=== PATIENT | male | born 1980 | race Two or more races ===

== ENCOUNTER 2016-11-20 19:47 | Observation (INO) | payer OTHER ==
[2016-11-20] MEDS ORDERED: ONDANSETRON 4 MG/2 ML VIAL IVP ONE (20:20)
[2016-11-20] MEDS ORDERED: NS 1,000 ML IV ONE (20:20)
--- NOTE | 2016-11-20 20:26 | EDPHY ---
H & P Smoking Status: Current every day smoker Time Seen by Provider: 11/20/16 19:59 HPI/ROS: CHIEF COMPLAINT: Back pain, left leg numbness HISTORY OF PRESENT ILLNESS: 36-year-old male presents after a fall with back pain and left leg numbness. He was on scaffolding approximately 8 feet off the ground when he lost his balance and fell backwards directly onto his back. Immediate onset severe upper and lower back pain, associated with shortness of breath. The shortness of breath has resolved. He continues to have diffuse back pain. He also has numbness in the left lower extremity. He denies head injury; no headache or neck pain. 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) Physical Exam: General Appearance: Alert, he is lying on left side, appears in pain Head: Atraumatic Eyes: No conjunctival erythema, PERRLA, EOMI ENT, Mouth: No hemotympanum, no oral trauma, no bony tenderness Neck: Nontender, full range of motion without pain Respiratory: left lower lateral chest wall tenderness, lungs clear bilaterally Cardiovascular: Regular rate and rhythm Abdomen: Abdomen is soft, left upper quadrant tenderness Skin: No lacerations, no abrasions Back: midline tenderness of the upper thoracic spine and the upper lumbar spine , no deformity Extremities: Pelvis is stable and nontender; no extremity tenderness Neurological: A&Ox3, motor exam-left lower extremity-weakness with knee extension and ankle dorsiflexion, 4+, sensory-decreased sensation to light touch of the entire leg Psychiatric: Mood and affect normal (Cass Elias) Constitutional: Initial Vital Signs Temperature (C) 36.8 C 11/20/16 19:50 Heart Rate 82 11/20/16 19:50 Respiratory Rate 20 11/20/16 19:50 Blood Pressure 131/75 H 11/20/16 19:50 O2 Sat (%) 96 11/20/16 19:50 O2 Delivery Mode Room Air Allergies/Adverse Reactions: No Known Allergies Allergy (Unverified 11/20/16 19:54) Home Medications: Medication Instructions Recorded NK [No Known Home Meds] 11/20/16 Medical Decision Making - Diagnostics Imaging Results: Imaging Impressions Chest CT 11/20/16 20:21 Impression: 1. No evidence of thoracic trauma or hemorrhage. 2. No aortic aneurysm, dissection, or mediastinal hematoma. Findings and recommendations discussed with Emergency Department physician, Star Segovia M.D., at 2150 hours, on November 20, 2016. Final report concurs with initial preliminary interpretation. Abdomen CT 11/20/16 20:22 Impression: 1. Normal CT abdomen and pelvis, with contrast enhancement. 2. No evidence of abdominal or pelvic hemorrhage or organ laceration. Findings and recommendations discussed with Emergency Department physician, Star Segovia M.D., at 2150 hours, on November 20, 2016. Final report concurs with initial preliminary interpretation. Lumbar Spine CT 11/20/16 20:22 Impression: 1. No definite fracture. 2. L4-L5: Moderate central canal stenosis secondary to right paramedian disk herniation. 3. Consider MRI lumbar spine. Findings and recommendations discussed with Emergency Department physician, Star Segovia M.D., at 2150 hours, on November 20, 2016. Final report concurs with initial preliminary interpretation. Thoracic Spine CT 11/20/16 20:22 Impression: 1. No definite thoracic compression fracture. 2. Multilevel mild degenerative disk disease mid to lower thoracic spine. 3. If there is persistent pain or a neurological deficit, recommend MR thoracic spine. Findings and recommendations discussed with Emergency Department physician, Star Segovia M.D., at 2150 hours, on November 20, 2016. Final report concurs with initial preliminary interpretation. Cervical Spine CT 11/20/16 21:04 Impression: 1. No definite fracture. 2. If there is persistent pain or a neurological deficit, recommend MR cervical spine and consider flexion and extension views, if clinically indicated. Findings and recommendations discussed with Emergency Department physician, Star Segovia M.D., at 2150 hours, on November 20, 2016. Final report concurs with initial preliminary interpretation. Lumbar Spine MRI 11/20/16 22:31 Impression: 1. No lumbar compression fractures or epidural hematomas. 2. L4-L5: Mild to moderate central canal stenosis and right neural foraminal stenosis secondary to degenerative disease, right paramedian disk herniation and bilateral facet arthropathy. 3. Please see above findings at specific disk levels. Findings and recommendations discussed with Emergency Department physician, Dr. Yoshi Logan at 23:47 hour, 11/20/2016. Final report concurs with initial preliminary interpretation. ED Course/Re-evaluation: 8:45 p.m.-I re-examined the patient after morphine and Zofran IV. He still is in a lot of pain and is unable to lie supine. Strength in the left lower extremity is 4+, including hip flexion, knee extension and ankle dorsiflexion. Morphine 6 mg IV given. He is now able to lie supine. After laying down, he complained of neck pain. A cervical spine collar was placed. CT neck ordered. (Cass Elias) Patient's care is transferred to sd at 11:[address] Sanchez. At that time the patient was at MRI. I evaluated him after he returned. He is complaining severe thoracic and lumbar pain. He appears to have some swelling versus spasming in his thoracic region. He continues to complain of right leg pain. He has 3 to 4/5 strength in his left leg with limited dorsiflexion of his foot and plantar flexion. His lumbar MRI only shows mild to moderate stenosis and disc herniation at the L4-5 region, possibly impingement of the right nerve root this does not correlate well with his left leg pain and weakness. Will add a MRI of his thoracic region. I have discussed the case with Bria Terry who will admit. We agreed not to upgrade to a full trauma despite his neurologic deficits because he has already been here for 4 hours. It is also somewhat difficult to gauge how well the patient is cooperating with exam. The patient has 2+ reflexes on my exam to knee and Achilles. After repeated interactions with this patient and his family do have some concern for conversion disorder versus malingering versus drug-seeking behavior however he does have legitimate symptoms although his symptoms primarily on the left leg and radiology findings are on the right side. I spoke with Dr. Bria Terry who will admit to the surgical service. She will see him after his thoracic MRI. (Yoshi Logan) Differential Diagnosis: Partial list of the Differential diagnosis considered include but were not limited to; spinal cord contusion, fracture, cord impingement, radiculopathy and although unlikely based on the history and physical exam, I also considered infection, ischemia, dissection. (Yoshi Logan) - Data Points Laboratory Results: Laboratory Results 11/20/16 20:23 11/20/16 20:23 11/20/16 11/20/16 20:23 20:23 WBC 10.61 10^3/uL H 10^3/uL (3.80-9.50) RBC 4.66 10^6/uL 10^6/uL (4.40-6.38) Hgb 14.7 g/dL g/dL (13.7-17.5) Hct 42.1 % % (40.0-51.0) MCV 90.3 fL fL (81.5-99.8) MCH 31.5 pg pg (27.9-34.1) MCHC 34.9 g/dL g/dL (32.4-36.7) RDW 12.9 % % (11.5-15.2) Plt Count 298 10^3/uL 10^3/uL (150-400) MPV 9.1 fL fL (8.7-11.7) Neut % (Auto) 66.3 % % (39.3-74.2) Lymph % (Auto) 25.3 % % (15.0-45.0) [place] % (Auto) 7.0 % % (4.5-13.0) Eos % (Auto) 0.6 % % (0.6-7.6) Baso % (Auto) 0.3 % % (0.3-1.7) Nucleat RBC Rel Count 0.0 % % (0.0-0.2) Absolute Neuts (auto) 7.05 10^3/uL H 10^3/uL (1.70-6.50) Absolute Lymphs (auto) 2.68 10^3/uL 10^3/uL (1.00-3.00) Absolute Monos (auto) 0.74 10^3/uL 10^3/uL (0.30-0.80) Absolute Eos (auto) 0.06 10^3/uL 10^3/uL (0.03-0.40) Absolute Basos (auto) 0.03 10^3/uL 10^3/uL (0.02-0.10) Absolute Nucleated RBC 0.00 10^3/uL 10^3/uL (0-0.01) Immature Gran % 0.5 % % (0.0-1.1) Immature Gran # 0.05 10^3/uL 10^3/uL (0.00-0.10) Sodium 140 mEq/L mEq/L (134-144) Potassium 3.6 mEq/L mEq/L (3.5-5.2) Chloride 104 mEq/L mEq/L (97-110) Carbon Dioxide 26 mEq/l mEq/l (22-31) Anion Gap 10 mEq/L mEq/L (8-16) BUN 14 mg/dL mg/dL (7-23) Creatinine 0.9 mg/dL mg/dL (0.7-1.3) Estimated GFR > 60 Glucose 61 mg/dL L mg/dL (70-100) Calcium 9.4 mg/dL mg/dL (8.5-10.4) Medications Given: Discontinued Medications Hydromorphone HCl (Dilaudid) 0.5 mg IVP EDNOW ONE Stop: 11/20/16 23:05 Last Admin: 11/21/16 00:29 Dose: Not Given Hydromorphone HCl (Dilaudid) 1 mg IVP EDNOW ONE Stop: 11/20/16 23:45 Last Admin: 11/21/16 00:28 Dose: 1 mg Sodium Chloride (Ns) 1,000 mls @ 0 mls/hr IV ONCE ONE PRN Reason: Wide Open Stop: 11/20/16 20:21 Last Admin: 11/20/16 20:39 Dose: 1,000 mls Morphine Sulfate (Morphine) 4 mg IVP EDNOW ONE Stop: 11/20/16 20:21 Last Admin: 11/20/16 20:39 Dose: 4 mg Ondansetron HCl (Zofran) 4 mg IVP EDNOW ONE Stop: 11/20/16 20:21 Last Admin: 11/20/16 20:39 Dose: 4 mg Departure - Departure Disposition: [facility] Clinical Impression: Fall Qualifiers: Encounter type: initial encounter Qualified Code(s): W19.XXXA - Unspecified fall, initial encounter Radiculopathy Qualifiers: Spinal region: lumbosacral Qualified Code(s): M54.17 - Radiculopathy, lumbosacral region Condition: Fair
[2016-11-20 20:35] LABS: % IMMATURE GRANULYOCYTES 0.5 % (0.0-1.1); ABSOLUTE IMMATURE GRANULOCYTES 0.05 10^3/uL (0.00-0.10); ADD DIFF? NO; ADD MORPH? NO; ADD SCAN? NO; ATYPICAL LYMPHOCYTE FLAG 10 (0-99); FRAGMENT RBC FLAG 0 (0-99); HEMATOCRIT 42.1 % (40.0-51.0); HEMOGLOBIN 14.7 g/dL (13.7-17.5); LEFT SHIFT FLG 0 (0-99); LIPEMIA HEMOLYSIS FLAG 90 (0-99); MEAN CELL HEMOGLOBIN 31.5 pg (27.9-34.1); MEAN CELL HEMOGLOBIN CONCENTR. 34.9 g/dL (32.4-36.7); MEAN CELL VOLUME 90.3 fL (81.5-99.8); MEAN PLATELET VOLUME 9.1 fL (8.7-11.7); PLATELET CLUMPS FLAG 0 (0-99); PLATELET COUNT 298 10^3/uL (150-400); RED BLOOD CELL COUNT 4.66 10^6/uL (4.40-6.38); RED CELL DISTRIBUTION WIDTH 12.9 % (11.5-15.2)
[2016-11-20] MEDS ORDERED: IOPAMIDOL (ISOVUE-300) 100 ML BTL IV ONE (20:37)
[2016-11-20 20:52] LABS: ANION GAP 10 mEq/L (8-16); CALCIUM 9.4 mg/dL (8.5-10.4); CARBON DIOXIDE 26 mEq/l (22-31); CHLORIDE 104 mEq/L (97-110); CREATININE 0.9 mg/dL (0.7-1.3); GLOMERULAR FILTRATION RATE > 60; GLUCOSE 61 mg/dL (70-100); POTASSIUM 3.6 mEq/L (3.5-5.2); SODIUM 140 mEq/L (134-144)
[2016-11-20] MEDS ORDERED: HYDROmorphONE/DILAUDID 1 MG/ML SYR ONE (22:49)
[2016-11-20] MEDS ORDERED: HYDROmorphONE/DILAUDID 1 MG/ML SYR IVP ONE ×2 (23:04→23:44)
[2016-11-21] MEDS ORDERED: DIAZEPAM 5 MG TAB PO PRN (01:06)
[2016-11-21] MEDS ORDERED: ONDANSETRON 4 MG/2 ML VIAL IVP PRN (01:06)
[2016-11-21] MEDS ORDERED: CYCLOBENZAPRINE 10 MG TAB PO PRN (01:09)
[2016-11-21] MEDS ORDERED: KETOROLAC 15 MG/1 ML SDV ONE (01:26)
[2016-11-21] MEDS: KETOROLAC 15 MG/1 ML SDV IVP PRN ×3 (01:31→18:52)
[2016-11-21] MEDS: LORazepam 2 MG/ML INJ IVP PRN ×2 (01:32→20:58)
--- NOTE | 2016-11-21 02:01 | GHP ---
[f rep st] HISTORY AND PHYSICAL DATE OF ADMISSION: 11/21/2016 CHIEF COMPLAINT: Trauma, fall from 8 feet. HISTORY OF PRESENT ILLNESS: The patient is a 36-year-old man who typically works from 8 a.m. to 6 p .m. He does not eat during the daytime. He was on a scaffolding when he lost his balance and fell onto his back. When he fell, he had the wind knocked out of him. That has resolved. However, he p resented to the ER due to back pain. On report when he was in the ER, he had decreased muscle stren gth on the left side of his body and was complaining of numbness and tingling of the left leg. He d id not lose consciousness. He had a CT scan of his chest, abdomen and spine. There were no rib fra ctures, pneumothorax or intrathoracic problems. This abdomen/pelvis CT was normal. On his lumbar C T, he had an L4-L5 moderate central canal stenosis. His CT of his C-spine was negative. On the lum bar spine, he had moderate central canal stenosis with right neural foraminal stenosis and a right p aramedian disc herniation. A thoracic MRI is pending. He is much more comfortable sitting up than lying down. PAST MEDICAL HISTORY: None, although he reports he does not respond well to pain medications. PAST SURGICAL HISTORY: None. SOCIAL HISTORY: He has 3 children. Currently, he smokes 1 pack of cigarettes a day. He typically does not eat during the day. 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 FAMILY HISTORY: Noncontributory. REVIEW OF SYSTEMS: He complains of back pain. He complains of pain on his left 5th toe. PHYSICAL EXAMINATION: GENERAL: He is sitting up on the side of his bed. HEENT: Normocephalic. N o gross hearing deficits. Mucous membranes moist. Pupils equal and round. No scleral icterus. Te eth fit together normally. No midface instability. NECK: No cervical spine tenderness. Full rang e of motion. LUNGS: Clear to auscultation bilaterally. No increased work of breathing. CARDIAC: Regular rate. ABDOMEN: Soft, nontender, nondistended. SPINE: He has absolutely no spinal tender ness until about the lumbar spine. Then, he starts having diffuse tenderness mainly in the paraspin ous regions, right side worse than left. On visual inspection, there is a slight swelling to the ri ght and appears to be a faint contusion on the right side. NEURO: 5/5 strength upper and lower ext remities. MUSCULOSKELETAL: On palpating, no long bone abnormalities. However, he has a lot of kush n on his left 5th toe. IMPRESSION AND PLAN: The patient is a 36-year-old, status post fall 8 feet with likely contusion an d muscle spasm to his right paramedian area. I personally reviewed his chart. His glucose is 61 an d he is complaining of being very hungry. I do not see any contraindication to him being fed. I child ve ordered an x-ray of his foot. He has a fracture of the distal phalanx of his left 5th toe. He c an have a general diet. I discussed the case with Dr. Love, who can see the patient in the morning regarding the mild to moderate central canal stenosis. I do not feel that this is in relation to t he traumatic event. I have not placed him on spinal precautions as he has no cervical spine tendern ess. He is answering questions appropriately. He has full range of motion. In terms of his back p ain, his imaging thus far does not show any instability. He is certainly much more comfortable sitt ing up. I have ordered muscle relaxants as well as pain medication and Toradol. /[id number]/MODL
[2016-11-21] MEDS ORDERED: KETOROLAC 15 MG/1 ML SDV IVP SCH (06:00)
[2016-11-21] MEDS ORDERED: IBUPROFEN 600 MG TAB PO SCH (06:00)
[2016-11-21] MEDS: HYDROCODONE/APAP 5/325 TAB PO PRN ×4 (07:58→23:51)
[2016-11-21] MEDS ORDERED: NICOTINE 7 MG/24 HR PATCH TD SCH (10:30)
[2016-11-21] MEDS: NICOTINE 21 MG/24 HR PATCH TD SCH (10:36)
--- NOTE | 2016-11-21 10:57 | GCON ---
[f rep st] CONSULTATION DATE OF CONSULTATION: 11/21/2016 REASON FOR CONSULTATION: Low back pain. Traumatic fall from 8 feet. HOSPITAL COURSE, HISTORY AND MAJOR MEDICAL FINDINGS: The patient is a 36-year- old gentleman. He states that he was on a scaffolding when he lost his balance and fell onto his back. He states the wind was knocked out of him. He presented to the ER with low back pain. He had decreased muscle strength on the left side of his body. He was complaining of numbness and tingling into his left leg. He did not lose any consciousness. He underwent a CT of the chest, abdomen, and pelvis which did not demonstrate any fractures. On his lumbar CT there was evidence of an L4-5 moderate canal stenosis. He had negative cervical spine imaging on admission as well. Upon examining the patient this morning he states that his low back has dramatically improved and he is denying any numbness, tingling or pain into his legs other than over his left pinky toe. REVIEW OF SYSTEMS: Review of systems is negative other than what is stated in the HPI. Please see pertinent negatives and pertinent positives. Please note, the patient also denies any saddle anesthesia or any loss of bowel or bladder control. PAST SURGICAL HISTORY: Negative. PAST MEDICAL HISTORY: Negative. SOCIAL HISTORY: The patient smokes 1 pack per day of cigarettes. 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 FAMILY HISTORY: Does have a history of his father having stomach cancer. ALLERGIES: No known drug allergies. HOME MEDICATIONS: None. PHYSICAL EXAM: VITALS: BP is 119/57, heart rate is 61, respiratory rate is 15. He is 92% on room air. Temp is 37.0. GENERAL: The patient is in no acute distress. He is alert and oriented x3. He answers questions appropriately. His affect is appropriate for the given situation. NEURO: Cranial nerves 2-12 are grossly intact. EOMI and PERRLA. 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 Sensation is intact in bilateral upper and bilateral lower extremities. Patellar reflexes are 2+ bilaterally. The patient does have a small abrasion and some pain over his left foot. ASSESSMENT AND PLAN: The patient is a 36-year-old gentleman who had a fall from an 8 foot scaffolding last night, who had acute low back pain and left leg pain upon admission which has improved since admission. His lumbar MRI does demonstrate some mild to moderate canal stenosis at L4-5 with some moderate central canal stenosis and bilateral facet arthropathy without any acute compression. He likely had some transient musculoskeletal pain and would recommend muscle relaxers and pain medications as needed. This does not require any acute neurosurgical intervention. This was discussed with Dr. Ashish Love, who will also be seeing the patient later today. The patient did have a thoracic MRI. The formal report for that is pending. We will follow up with thoracic spine MRI and if this is negative we will sign off. If the patient continues to have low back pain, he can follow up with [facility] as an outpatient. Would recommend PT OT evals as needed. [facility] pain management. STAFF ADDENDUM: 36 year old s/p fall from scaffolding. Had some low back pain and leg paresthesias which have now completely resolved. His lumbar MRI showed some DJD and mild lateral recess stenosis at L4-5. I think his pain was likely just a musculoskeletal strain or sprain and this should respond well to NSAIDs. He currently has no complaints. He does not need scheduled neurosurgical followup but we are happy to see him in clinic if the symptoms recur. /[id number]/MODL MTDD
[2016-11-21] MEDS ORDERED: PNEUMOCOCCAL 0.5ML VACCINE VIAL IM ONE (10:58)
--- NOTE | 2016-11-21 13:14 | TRAUMAPN ---
Assessment/Plan: 36yo M s/p fall c LBP, L 5th toe fracture - Neuro: completely neuro intact, LBP experienced earlier has markedly diminished. MR reviewed per NSG, non-surgical. Pain controlled - Resp: MARIBELL - CV: HDS - Abd: soft, ND, nontender. Explained to him that he needs to eat more than one meal a day at 5pm - Renal: voiding - Ortho: L 5th toe fracture, discussed splinting with tape to adjacent toe, not really much else to do for this - Dispo: NSG has seen and cleared. Pending PT clearance will plan for dc today Subjective: back pain markedly better than previous. Objective: Vital Signs Temp Pulse Resp BP Pulse Ox 36.7 C 49 L 15 104/49 L 95 11/21/16 11:38 11/21/16 11:38 11/21/16 11:38 11/21/16 11:38 11/21/16 11:38 11/20/16 11/21/16 11/22/16 05:59 05:59 05:59 Intake Total 1500 Balance 1500 - C-Spine Clearance Cervical Spine Cleared: Yes Physical Exam - Physical Exam General Appearance: WD/WN, alert, no apparent distress Neck: non-tender, full range of motion Respiratory: chest non-tender, lungs clear Cardiac/Chest: normal peripheral pulses Abdomen: normal bowel sounds, non-tender, soft Back: Other (Has small bruise on L flank, lower back is tender but appropriate. ) Extremities: other (L 5th toe is tender and swollen. )
[2016-11-21] MEDS ORDERED: LACTULOSE 20 GM/30 ML UDCUP PO PRN (17:45)
[2016-11-21] MEDS ORDERED: MAGNESIUM HYDROXIDE 30 ML UDCUP PO PRN (17:45)
[2016-11-21] MEDS ORDERED: POLYETHYLENE GLYCOL 3350 17 GM PKT PO PRN (17:45)
[2016-11-21] MEDS ORDERED: BISACODYL 10 MG SUPP PR PRN (17:45)
--- NOTE | 2016-11-21 20:07 | SOAPPROG ---
SOAP Progress Note Assessment/Plan: Assessment/Plan 36yo M s/p fall c LBP, L 5th toe fracture - Patient had eval by MILEAGE CLERK earlier today. They had many concerns given his moderate cognitive impairment s/p TBI. I discussed the case with the manager rn case and utilization RN who felt d/c was unsafe. Via practice director, discussed my concerns with the patient and asked him to stay an additional night for further evaluation and treatment. He was amenable to this. Will plan for re- eval tomorrow 11/21/16 20:06 Objective: Vital Signs Temp Pulse Resp BP Pulse Ox 36.7 C 61 15 125/69 H 95 11/21/16 17:19 11/21/16 17:19 11/21/16 17:19 11/21/16 17:19 11/21/16 17:19 11/20/16 11/21/16 11/22/16 05:59 05:59 05:59 Intake Total 2500 Balance 2500 ICD10 Worksheet Patient Problems: Problems Problem Status Onset Fall Acute Radiculopathy Acute
[2016-11-21] MEDS: SENNOSIDES/DOCUSATE SODIUM TAB PO SCH (20:58)
[2016-11-22] MEDS: KETOROLAC 15 MG/1 ML SDV IVP PRN (01:08)
[2016-11-22] MEDS: LORazepam 2 MG/ML INJ IVP PRN (01:08)
[2016-11-22] MEDS: HYDROCODONE/APAP 5/325 TAB PO PRN ×2 (01:13→10:42)
[2016-11-22 07:57] VITALS: BP 115/76; PULSE 78; RESP 14; TEMP 98.1; O2SAT 95
--- NOTE | 2016-11-22 09:20 | GDS ---
[f rep st] DISCHARGE SUMMARY HISTORY OF PRESENT ILLNESS: The patient was admitted yesterday, 11/21, after falling from 8 feet on a scaffold. At the time, he complained of back pain, left foot pain and some tingling in his legs. HOSPITAL COURSE: The patient underwent a variety of diagnostic studies including CT of the chest, l umbar spine, thoracic spine, cervical spine, as well as eventual lumbar and thoracic MRI. He also h ad a toe x-ray which showed a displaced intra-articular fracture involving the base of the distal ph alanx of left 5th toe. This was felt to be nonoperative. The remainder of the exams were fairly no rmal other than congenital type cervical canal noted. The patient underwent evaluation of speech and language pathology, who felt he had mild cognitive de ficits. Some of these may be related to a brain injury he had 16 years ago. At the time of discharge, patient is ambulating and tolerating a diet. FINAL DIAGNOSES: 1. Fall. 2. Back contusions. 3. Left 5th toe fracture. It is hard to ascribe his cognitive issues in terms of a concussion as the patient was not noted to have loss of consciousness or concussion. The patient will be discharged home after speech evaluati on today. /[id number]/MODL
[2016-11-22] MEDS: NICOTINE 21 MG/24 HR PATCH TD SCH (10:14)
[2016-11-22] MEDS: SENNOSIDES/DOCUSATE SODIUM TAB PO SCH (10:14)
== END 2016-11-22 10:55 | disposition home or self-care (01) ==
LOC: F3N 11-21 00:37
PROVIDERS: ADMIT Surgery; ATTEND Surgery
DX: S30.0XXA Contusion of lower back and pelvis, initial encounter (principal); S20.229A Contusion of unspecified back wall of thorax, initial encounter; S92.532A Displaced fracture of distal phalanx of left lesser toe(s), initial encounter for closed fracture; W12.XXXA Fall on and from scaffolding, initial encounter; Y93.H3 Activity, building and construction; Y99.0 Civilian activity done for income or pay; Z23 Encounter for immunization; M48.06 Spinal stenosis, lumbar region; M51.26 Other intervertebral disc displacement, lumbar region; M79.605 Pain in left leg; F17.210 Nicotine dependence, cigarettes, uncomplicated
CPT/HCPCS: 71260; 72125; 72129; 72132; 72146; 72148; 73660; 74177; 90471; 92523; 97161; G0378; 96374; G0009; J1170; J1885; J2060; J2405; Q9967